=== PATIENT | female | born 1970 | race Caucasian/White ===

== ENCOUNTER 2024-03-31 08:10 | Outpatient (CLI) | payer OTHER ==
--- NOTE | 2024-04-02 15:35 | Mammography Report ---
BILATERAL DIGITAL SCREENING MAMMOGRAM 3D/2D: 03/31/2024 CLINICAL: Routine screening. Comparison is made to exams dated: 12/18/2021 mammogram, 06/25/2017 mammogram, and 04/11/2016 mammogram - [facility]. There are scattered areas of fibroglandular density in both breasts (category b / 25%-50% glandular t issue). No significant masses, calcifications, or other findings are seen in either breast. There has been no significant interval change. IMPRESSION: NEGATIVE There is no mammographic evidence of malignancy. A 1 year screening mammogram is recommended. Based on the Tyrer Cuzick model (a risk assessment model) the patient's lifetime risk is 13.7% and he r 10 year risk is 4.5%. According to the ACR, ACS, and NCCN guidelines, an annual breast MRI exam maritza ng with mammogram is recommended if the patient's lifetime risk is 20% or greater. This exam was interpreted at Station ID: [id number]. NOTE: For mammograms, a report in lay terms will be sent to the patient. Approximately 15% of breast malignancies will not be visualized mammographically. In the management of a palpable breast mass, a negative mammogram must not discourage biopsy of a clinically suspicious lesion. Electronically Signed By: Meg Alvarado M.D., Ph.D. /major:04/01/2024 12:03:47 letter sent: No_Letter ACR BI-RADS Category 1: Negative 3341F PARENCHYMAL PATTERN: (A) - The breast(s) demonstrate(s) scattered fibroglandular densities. BI-RADS CATEGORY: (1) - 1 RECOMMENDATION: (ANNUAL) - Recommend routine annual screening mammography. [id number] 1 year screening LATERALITY: (B)
== END 2024-03-31 08:11 | disposition home or self-care (01) ==
LOC: DI 08:10
PROVIDERS: ATTEND Registered Nurse
DX: Z12.31 Encounter for screening mammogram for malignant neoplasm of breast (principal); R92.323 Mammographic fibroglandular density, bilateral breasts

== ENCOUNTER 2024-04-26 15:00 | Outpatient (CLI) | payer BC, OTHER ==
--- NOTE | 2024-04-27 15:56 | XRAY Report ---
PROCEDURE: Lumbar Spine 2-3V INDICATIONS: LOW BACK PAIN, ACUTE TECHNIQUE: 3 view(s) of the lumbar spine were acquired. COMPARISON: None. FINDINGS: Bones: Vertebral body height and alignment is maintained. No suspicious bony lesions. Disc space tahmina rowing and small anterior osteophytes the mid lumbar spine Soft tissues: Overlying bowel gas pattern is normal. No suspicious soft tissue calcifications. IMPRESSION: Degenerative disc disease in the mid lumbar spine. No fracture. Reviewed by: Kameron Howell MD on 04/27/2024 2:55 PM AKDT Approved by: Kameron Howell MD on 04/27/2024 2:55 PM AKDT Station ID: [id number]
== END 2024-04-26 15:15 | disposition home or self-care (01) ==
LOC: DI.N 15:00
PROVIDERS: ATTEND Family Medicine
DX: M51.36 Other intervertebral disc degeneration, lumbar region (principal)

== ENCOUNTER 2024-05-04 07:18 | Emergency (ER) | payer BC ==
--- NOTE | 2024-05-04 07:32 | ED Physician Documentation ---
PD HPI ABD PAIN - Stated complaint Stated Complaint: LOW RT ABD PX - Chief complaint Chief Complaint: Abd Pain - History obtained from History obtained from: Patient - Additional information Additional information: She sprained her back a couple weeks ago, but this morning developed sudden onset right lower quadrant pain while urinating. She has not been nauseous. She has been maybe bit slower with bowel movements lately but feels like she has not been eating as much. She has had a couple of C-sections. No other abdominal surgeries. No history of renal colic. 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 - Present Medications Home Medications: Ambulatory Orders Medication Instructions Recorded Confirmed Cyclobenzaprine [Flexeril] 10 mg PO TID PRN 05/04/24 05/04/24 Estradiol [Estrace] 0.5 mg PO DAILY 05/04/24 05/04/24 - Allergies Allergies/Adverse Reactions: Allergies Allergy/AdvReac Type Severity Reaction Status Date / Time No Known Drug Allergies Allergy Verified 05/04/24 07:25 - Social History Does the pt smoke?: No Smoking Status: Never smoker Does the pt drink ETOH?: No Does the pt have substance abuse?: No - Immunizations Immunizations are current?: Yes Immunizations: TDAP >10years/unknown - POLST Patient has POLST: No PD ED PE NORMAL - Vitals Vital signs reviewed: Yes - General General: Alert and oriented X 3, Other (She appears uncomfortable and overtly in pain.) - Cardiac Cardiac: RRR, No murmur - Respiratory Respiratory: No respiratory distress, Clear bilaterally - Abdomen Abdomen: Normal bowel sounds, Soft, Other (Mild right lower quadrant and right f lank tenderness without surgical signs.) - Neuro Neuro: Alert and oriented X 3 Results - Vitals Vitals: Vital Signs - 24 hr 05/04/24 05/04/24 05/04/24 07:25 07:46 08:03 Temperature 35.9 C L Heart Rate 86 79 70 Respiratory 24 20 24 Rate Blood Pressure 135/102 H 143/68 H 156/87 H O2 Saturation 100 96 96 05/04/24 10:00 Temperature 36.4 C L Heart Rate 89 Respiratory 18 Rate Blood Pressure 131/77 H O2 Saturation 93 Oxygen O2 Source Room air - Labs Labs: Laboratory Tests 05/04/24 05/04/24 05/04/24 07:35 07:35 10:52 WBC 15.4 H RBC 5.70 H Hgb 15.7 Hct 47.5 H MCV 83.3 MCH 27.5 MCHC 33.1 RDW 14.7 Plt Count 363 MPV 9.6 Neut # (Auto) Not Reportable Lymph # (Auto) Not Reportable [place] # (Auto) Not Reportable Eos # (Auto) Not Reportable Baso # (Auto) Not Reportable Absolute Nucleated RBC Not Reportable Total Counted 100 Band Neuts % (Manual) 0 Reactive Lymphs % (Man) 23 Abnorm Lymph % (Manual) 0 Nucleated RBC % Not Reportable Neutrophils # (Manual) 8.0 H Lymphocytes # (Manual) 6.3 H Monocytes # (Manual) 0.8 Eosinophils # (Manual) 0.0 Basophils # (Manual) 0.3 H Differential Comment MANUAL DIFFERENTIAL Platelet Estimate NORMAL (130-450,000) RBC Morph Micro Appear 2+ ANISOCYTOSIS Sodium 136 Potassium 4.2 Chloride 102 Carbon Dioxide 24 Anion Gap 10.0 BUN 28 H Creatinine 0.9 Estimated GFR (MDRD) 65 L Glucose 136 H Calcium 9.9 Total Bilirubin 0.8 AST 8 L ALT 15 Alkaline Phosphatase 77 Total Protein 7.2 Albumin 4.4 Globulin 2.8 Albumin/Globulin Ratio 1.6 Urine Color DARK YELLOW Urine Clarity SL. CLOUDY Urine pH 6.5 Ur Specific [place] 1.020 Urine Protein NEGATIVE Urine Glucose (UA) NEGATIVE Urine Ketones NEGATIVE Urine Occult Blood LARGE H Urine Nitrite NEGATIVE Urine Bilirubin NEGATIVE Urine Urobilinogen 0.2 (NORMAL) Ur Leukocyte Esterase NEGATIVE Urine RBC 0-5 Urine WBC 0-3 Ur Squamous Epith Cells MANY Squamous H Urine Bacteria Few Ur Microscopic Review INDICATED Urine Culture Comments NOT INDICATED - Rads (name of study) CT KUB - neg Relevant Findings:: Final report received, EMP independent interpretation of test CT Angio Abd Relevant Findings:: Final report received, EMP independent interpretation of test PD Medical Decision Making - ED course ED course: 54-year-old presents with right lower quadrant pain. Relatively sudden onset and severe and she looks quite uncomfortable. She is minimally tender, pattern most consistent with renal colic and sent for Noncon CT and I was frankly a bit surprised when this came back negative. Her blood work was notable for a white count of 15.4 and a relatively unremarkable CMP. Her pain was difficult to control and only after 4 mg of IV Dilaudid and 15 mg of ketorolac were we able to get her somewhat comfortable. Since we now are confident that it is not renal colic, I will send her for an angio to rule out vascular issue. Subsequently CT angiography of the abdomen and pelvis was negative save constipation. At that point she was pain free and NTTP. Advised a laxative and return if worse. Departure - Departure Disposition: Home, Self Care Clinical Impression: Constipation Qualifiers: Constipation type: unspecified constipation type Qualified Code(s): K59.00 - Constipation, unspecified Abdominal pain Qualifiers: Abdominal location: right lower quadrant Qualified Code(s): R10.31 - Right lower quadrant pain Condition: Good Record reviewed to determine appropriate education?: Yes Instructions: ED Abdominal Pain Female Non-Specific Abdominal Pain Comments: As discussed, the only significant abnormal finding was a larger than average stool load on the CT. For this I recommend an [id number] laxative of your choice such as MiraLAX or magnesium citrate. If the pain recurs please return for reevaluation. Follow-up with your primary care physician, next available appointment. Forms: PCP List
[2024-05-04] MEDS: SODIUM CHLORIDE 0.9% 1,000 ML IV STA (07:42)
[2024-05-04] MEDS: HYDROmorphone 1 MG/ML CARPUJECT IVP STA ×3 (07:43→08:46)
[2024-05-04] MEDS: KETOROLAC 15 MG/ML VIAL IVP STA (07:43)
[2024-05-04 07:44] LABS: EOSINOPHILS % (AUTO) 1.8 %; HCT - HEMATOCRIT 47.5 % (37.0-47.0); HGB - HEMOGLOBIN 15.7 g/dL (12.0-16.0); LYMPHOCYTES % (AUTO) 49.4 %; MEAN CORPUSCULAR HEMOGLOBIN 27.5 pg (27.0-31.0); MEAN CORPUSCULAR HGB CONC 33.1 g/dL (32.0-36.0); MEAN CORPUSCULAR VOLUME 83.3 fL (81.0-99.0); MEAN PLATELET VOLUME 9.6 fL (7.9-10.8); MONOCYTES % (AUTO) 4.9 %; NEUTROPHILS % (AUTO) 42.6 %; PLT - PLATELET COUNT 363 10^3/uL (130-450); RED CELL DISTRIBUTION WIDTH 14.7 % (12.0-15.0); WHITE BLOOD COUNT 15.4 x10^3/uL (4.8-10.8)
[2024-05-04 07:49] LABS: ABNORMAL LYMPHS % (MANUAL) 0 %; BAND NEUTROPHILS % (MANUAL) 0 %
[2024-05-04 08:01] LABS: ALBUMIN 4.4 g/dL (3.2-5.5); ALBUMIN/GLOBULIN RATIO 1.6 (1.0-2.2); BILIRUBIN,TOTAL 0.8 mg/dL (0.2-1.0); CALCIUM 9.9 mg/dL (8.5-10.3); CREATININE 0.9 mg/dL (0.6-1.3); POTASSIUM 4.2 mmol/L (3.5-4.5); TOTAL PROTEIN 7.2 g/dL (6.4-8.9)
[2024-05-04 08:09] LABS: BASOPHILS # (MANUAL) 0.3 10^3/uL (0-0.1); BASOPHILS % (MANUAL) 2 %; LYMPHOCYTES # (MANUAL) 6.3 10^3/uL (1.5-3.5); LYMPHOCYTES % (MANUAL) 18 %; MONOCYTES # (MANUAL) 0.8 10^3/uL (0.0-1.0); PLATELET ESTIMATE, MANUAL NORMAL (130-450,000) (NORMAL); RBC MORPHOLOGY (MULTIPLE) 2+ ANISOCYTOSIS (NORMAL); REACTIVE LYMPHS % (MANUAL) 23 %
[2024-05-04 08:10] LABS: DIFFERENTIAL COMMENT MANUAL DIFFERENTIAL
--- NOTE | 2024-05-04 09:21 | CT Report ---
PROCEDURE: Abdomen/Pelvis WO INDICATIONS: RLQ pain, pattern c/w ureteral stone TECHNIQUE: A CT scan of the abdomen and pelvis was performed without the use of intravenous contrast. Images we re recorded and evaluated at appropriate window settings. Reformats: coronal and sagittal. For radiat ion dose reduction, the following was used: automated exposure control, adjustment of mA and/or kV ac cording to patient size. COMPARISON: None. FINDINGS: Image quality: Diagnostic. Lower chest: Unremarkable. Liver: No contour-deforming mass. Hepatic steatosis is seen. Gallbladder: No radiopaque stones or wall thickening. Biliary tree: No intrahepatic or extrahepatic dilation, accounting for age. Spleen: No splenomegaly. Pancreas: No pancreatic ductal dilation. Adrenals: No adrenal nodule. Kidneys and ureters: No hydronephrosis. No contour-deforming mass. No hydroureter or obstructing uret eral stones. Multiple phleboliths are noted in lower pelvis. Stomach, bowel and peritoneum: No gastric or small bowel dilation. No abnormal wall thickening. No pa thologic free fluid. Normal-appearing appendix is seen in right lower quadrant abdomen. Moderate feca l stasis in the colon is seen. No gross free air. Lymph nodes: No central or retroperitoneal adenopathy. Vessels: No infrarenal aortic aneurysm. Reproductive organs: Unremarkable. Bladder: Bladder wall thickness is normal, accounting for underdistention. No calcified bladder stone s. Pelvic lymph nodes: No adenopathy by size criteria. Bones: No aggressive osseous abnormality. Other: Small umbilical hernia is seen containing fat only. No significant inguinal hernia.. IMPRESSION: 1. No hydronephrosis or obstructing renal stones. No hydroureter. Normal-appearing urinary bladder. N o bladder stones. Multiple phleboliths in lower pelvis. 2. Normal appendix. Mild to moderate constipation. No bowel obstruction or abnormal bowel wall thicke aimee. No free fluid of free air. Reviewed by: Rudy Perez MD on 05/04/2024 9:20 AM PDT Approved by: Rudy Perez MD on 05/04/2024 9:20 AM PDT Station ID: [id number]
[2024-05-04] MEDS ORDERED: iohexoL-300 100 ML VIAL ONE (09:43)
--- NOTE | 2024-05-04 10:55 | CT Report ---
PROCEDURE: Angio Abdomen/Pelvis INDICATIONS: severe R abd pain CONTRAST: Intravenous TECHNIQUE: After the administration of intravenous contrast, 2.5 mm thick sections acquired from the diaphragm t o the symphysis. 10 mm maximum-intensity projection (MIP) reformats were then acquired. For radiati on dose reduction, the following was used: automated exposure control, adjustment of mA and/or kV ac cording to patient size. COMPARISON: Same day CT FINDINGS: Image quality: Excellent. VESSELS: Aorta: Patent and normal in caliber. No significant atherosclerosis. No acute aortic syndrome. Mesenteric arteries: Celiac trunk, superior and inferior mesenteric arteries appear patent. Right pelvic arteries: Patent and normal in caliber. Left pelvic arteries: Patent and normal in caliber. CHEST: Lung bases and heart: Mild dependent atelectasis. ABDOMEN: Liver: No solid mass. Gallbladder and biliary tree: No radiopaque stones or wall thickening. No biliary dilation. Spleen: No splenomegaly. Pancreas: No pancreatic ductal dilation. Adrenals: No adrenal nodule. Kidneys and ureters: No hydronephrosis. No renal cystic lesion which requires follow up. No solid mas s. Bowel and peritoneum: No bowel distension. No pathologic free fluid. Normal appendix. Moderate stool burden. Lymph nodes: No central or retroperitoneal adenopathy. PELVIS Reproductive organs: Unremarkable. Bladder: No abnormal wall thickening, accounting for underdistension. Pelvic lymph nodes: No pelvic adenopathy by size criteria. Bones: No aggressive osseous abnormality. Other: No significant ventral or inguinal hernia. IMPRESSION: 1.Aorta and branching vessels are patent and normal in caliber. No acute abnormalities. 2.Moderate stool burden, correlate for constipation. 3.No acute findings within the abdomen or pelvis. Reviewed by: Tavares Segovia MD on 05/04/2024 10:53 AM PDT Approved by: Tavares Segovia MD on 05/04/2024 10:53 AM PDT Station ID: [id number]
[2024-05-04 10:59] LABS: BILIRUBIN,URINE NEGATIVE (NEGATIVE); GLUCOSE, URINE (UA) NEGATIVE (NEGATIVE); KETONES,URINE (UA) NEGATIVE (NEGATIVE); LEUKOCYTE ESTERASE, URINE NEGATIVE (NEGATIVE); NITRITE,URINE NEGATIVE (NEGATIVE); OCCULT BLOOD,URINE LARGE (NEGATIVE); PH,URINE 6.5 PH (5.0-7.5); PROTEIN,URINE NEGATIVE (NEGATIVE); UROBILINOGEN,URINE 0.2 (NORMAL) E.U./dL (NORMAL)
[2024-05-04 11:00] LABS: CLARITY,URINE SL. CLOUDY (CLEAR)
[2024-05-04 11:13] LABS: BACTERIA,URINE Few /HPF (None Seen); RBC,URINE 0-5 /HPF (0-5); SQUAMOUS EPITHELIAL CELL,UR MANY Squamous (<= Few); WBC,URINE 0-3 /HPF (0-5)
[2024-05-04 11:39] VITALS: BP 105/78; O2SAT 96
[2024-05-04] MEDS: iohexoL-300 100 ML VIAL IVP ONE (13:20)
== END 2024-05-04 11:37 | disposition home or self-care (01) ==
LOC: ED 07:18
DX: R10.31 Right lower quadrant pain (principal); K59.00 Constipation, unspecified
CPT/HCPCS: 36415; 74174; 74176; 80053; 81001; 85025; 96374; 96376; 99283; 99284; J1170; Q9967; 81003; 87086